=== PATIENT | male | born 1965 | race Caucasian/White ===

== ENCOUNTER 2024-05-09 10:52 | Inpatient (IN) | payer OTHER ==
[~2024-05-09] VITALS: Ht 177.8 cm; Wt 99.0 kg
[~2024-05-09 10:52] MED LIST: AMOCLA875; SULTRIDS
[2024-05-09] MEDS ORDERED: Ondansetron HCl 2 MG / ML 2ML Vial IV ONE (11:10)
[2024-05-09 11:37] LABS: BASOPHILS ABSOLUTE AUTO 0.04 K/mm3 (0.00-0.23); BASOPHILS PERCENT AUTO 1 % (0-2); EOSINOPHILS ABSOLUTE AUTO 0.01 K/mm3 (0.00-0.68); EOSINOPHILS PERCENT AUTO 0 % (0-6); Hematocrit 39.6 % (37.0-53.0); Hemoglobin 12.7 g/dL (13.5-17.5); IMMATURE GRAN ABSOLUTE AUTO 0.04 K/mm3 (0.00-0.10); IMMATURE GRAN PERCENT AUTO 1 % (0-1); LYMPHOCYTES ABSOLUTE AUTO 0.97 K/mm3 (0.84-5.20); LYMPHOCYTES PERCENT AUTO 11 % (21-46); MONOCYTES ABSOLUTE AUTO 0.67 K/mm3 (0.16-1.47); MONOCYTES PERCENT AUTO 8 % (4-13); Mean Corpuscular HGB Conc 32.1 g/dL (31.5-36.5); Mean Corpuscular Volume 87 fL (80-100); Mean Platelet Volume 8.9 fL (9.1-12.4); NEUTROPHILS ABSOLUTE AUTO 6.97 K/mm3 (1.96-9.15); NEUTROPHILS PERCENT AUTO 80 % (41-73); Platelet Count 410 K/mm3 (150-400); RDW Coefficient Variation 13.5 % (11.7-14.2); RDW Standard Deviation 43.6 fL (35.1-46.3); Red Blood Cell Count 4.54 M/mm3 (4.30-5.90)
[2024-05-09 11:54] LABS: Albumin, Blood 3.1 g/dL (3.4-5.0); Albumin/Globulin Ratio 0.7 (0.8-1.8); Bilirubin, Total 0.5 mg/dL (0.1-1.0); Bun/Creatinine Ratio 15.6 (12.0-20.0); Calcium, Blood 8.9 mg/dL (8.5-10.1); Creatinine, Blood 0.77 mg/dL (0.60-1.20); Globulin, Blood 4.5 g/dL (2.2-4.0); Potassium, Blood 3.9 mmol/L (3.5-5.5); Total Protein, Blood 7.6 g/dL (6.4-8.2)
[2024-05-09 12:26] LABS: Source, Urine Clean Catch
[2024-05-09 12:33] LABS: Appearance, Urine Clear (Clear); Bilirubin, Urine Neg (Neg); Blood, Urine Neg (Neg); Color, Urine Yellow (P-Yellow); Glucose Qualitative, Urine Neg (Neg); Ketones, Urine 4+ (Neg); Leukocyte Esterase, Urine 1+ (Neg); Nitrite, Urine Neg (Neg); Protein, Urine 2+ (Neg); Urobilinogen, Urine NORM (Normal)
[2024-05-09 12:40] LABS: Bacteria Many /hpf; Mucus Light (0-Heavy); Red Blood Cells, Urine 0-2 /hpf (0-2); Squamous Epithelial Cells Few /hpf (Few)
[2024-05-09] MEDS ORDERED: Ketorolac Tromethamine 15mg Vial IV ONE (14:10)
[2024-05-09] MEDS ORDERED: CefTRIAXone Sodium 1,000 MG in NS 100 ML IV ONE (14:30)
[2024-05-09] MEDS ORDERED: NS 1,000 ML IV SCH ×2 (14:35→17:00)
[2024-05-09] MEDS ORDERED: Ondansetron HCl 2 MG / ML 2ML Vial IV PRN (15:35)
[2024-05-09] MEDS ORDERED: FLU VACC TS2024-25(6MOS UP)/PF 45 MCG/0.5 ML SYRINGE IM ONE (15:35)
--- NOTE | 2024-05-09 16:32 | NUR ---
RECEIVED REPORT FORM JUVENAL OF ED.
[2024-05-09 17:03] VITALS: BP 150/88
[2024-05-09] MEDS ORDERED: Simethicone 80 MG Chew PO PRN (18:05)
[2024-05-09] MEDS ORDERED: FentaNYL Citrate 50 MCG/ML 2 ML Injection IV PRN (18:10)
--- NOTE | 2024-05-09 18:41 | NUR ---
SHIFT SUMMARY PT AOX4, COOPERATIVE, ABLE TO MAKE NEEDS KNOWN. PT IS AMBULATORY IN ROOM. MAIN COMPLAINT OF ABD GAS PAIN, MEDICATE PER EMAR. PT CLEAR LIQUID DIET CURRENTLY, RUNNING NS 75ML/HR. AWAITING BED AT [facility] FOR TRANSFER. BED IN LOWEST POSITION, CALL LIGHT WITHIN REACH.
[2024-05-09 20:00] VITALS: BP 142/97
[2024-05-10 04:06] VITALS: BP 152/87
--- NOTE | 2024-05-10 05:27 | NUR ---
SHIFT SUMMARY PT ALERT AND ORIENTED TIMES 4. PT ADMITTED FOR COLONIC MASS. PT IS TO TRANSFER TO [facility] WHEN BED IS AVAILABLE, FOR FURTHER TREATMENT. PT IS RECEPTIVE TO CARE. PT APPEARED TO SLEEP ON AND OFF THROUGH THE NIGHT. PT TOOK 25MCG OF FENT FOR PAIN. PT ABLE TO MAKE NEEDS KNOWN TO STAFF. PT RECEPTIVE TO CARE. CALL LIGHT WITHIN REACH, RAILS TIMES 2, BED IN LOW POSITION.
[2024-05-10 08:22] VITALS: BP 142/88
[2024-05-10] MEDS ORDERED: Heparin Sodium 5000 Units/ML 1ML MDV SC SCH (09:00)
--- NOTE | 2024-05-10 14:24 | NUR ---
NEAL CALLED FROM [facility] FOR UPDATE ON PT. INFORMED MD ASSESSED PT AND PT IS NOW NPO WITH EXCEPTION OF SIPS WATER AND ICE CHIPS. INFORMED ABOUT PAIN MANAGMENT, GAS PAIN, AMBULATORY, AND HYDRONEPHROSIS. WILL CALL WITH ANY NEW UPDATES.
[2024-05-10] MEDS ORDERED: CefTRIAXone Sodium 1,000 MG in NS 100 ML IV SCH (15:00)
[2024-05-10 16:05] VITALS: BP 147/84
--- NOTE | 2024-05-10 16:39 | NUR ---
SHIFT SUMMARY PT AOX4, COOPERATIVE, ABLE TO MAKE NEEDS KNOWN. PT IS IND IN ROOM, RUNNING NS AT 75/HR. PT IS NPO EXCEPT CAN HAVE SIPS WATER AND ICE CHIPS, PT UNDERSTANDS AND IS WILLING. ONLY COMPLAINS OF GAS PAIN IN ABDOMEN, MEDICATE PER EMAR. AWAITING BED AT [facility]. BED IN LOWEST POSITION, CALL LIGHT WITHIN REACH.
[2024-05-10] MEDS ORDERED: NS 250 ML IV PRN (18:40)
[2024-05-10 20:18] VITALS: BP 165/100
[2024-05-11 03:48] VITALS: BP 153/86
--- NOTE | 2024-05-11 05:02 | NUR ---
SHIFT SUMMARY PT ALERT AND ORIENTED TIMES 4. PT ADMITTED FOR COLONIC MASS. PT IS TO TRANSFER TO [facility] WHEN BED IS AVAILABLE, FOR FURTHER TREATMENT. PT IS RECEPTIVE TO CARE. PT APPEARED TO SLEEP ON AND OFF THROUGH THE NIGHT. PT TOOK 25MCG OF FENT FOR PAIN. PT ABLE TO MAKE NEEDS KNOWN TO STAFF. PT RECEPTIVE TO CARE. CALL LIGHT WITHIN REACH, RAILS TIMES 2, BED IN LOW POSITION.
[2024-05-11 07:17] VITALS: BP 146/95
[2024-05-11 15:39] VITALS: BP 151/84
[2024-05-11] MEDS ORDERED: NS 1,000 ML IV SCH (16:00)
[2024-05-11 16:51] VITALS: BP 151/84
[2024-05-11 17:46] VITALS: BP 151/84
--- NOTE | 2024-05-11 18:22 | NUR ---
SHIFT SUMMARY PT A&OX4. PT ADMITTED DUE TO COLONIC MASS. PT NPO. PT SIPS WATER AND EATS ICE CHIPS. PT HAD SHOWER THIS AM. PT REPORTS ABD PAIN, PAIN MANAGED PER EMAR. PT REPORTED MINIMAL NAUSEA. PT HAS NS RUNNING AT 75ML/HR. INDEPENDENT IN ROOM. PT IS COBRA TRANSFER. GAVE REPORT TO [facility] NURSE EVELIO. TRANSFER CAME TO MANAGER ASSURANCE PT. PT LEFT WITH BELONGINGS. VSS. PT LEFT WITH IV'S.
== END 2024-05-11 18:16 | disposition short-term general hospital (02) | DRG 375 ==
LOC: ER 10:52 → MEDS 10:53
PROVIDERS: Student in an Organized Health Care Education/Training Program; ADMIT Internal Medicine
DX: D49.0 Neoplasm of unspecified behavior of digestive system (principal); K56.699 Other intestinal obstruction unspecified as to partial versus complete obstruction; N13.6 Pyonephrosis; D64.9 Anemia, unspecified; I10 Essential (primary) hypertension
CPT/HCPCS: 71046; 74177; 80053; 81001; 83690; 84484; 85025; 87086; 93005; 93010; 96365; 96375; 99285-25; A9270; G0378; J0696; J1644; J1885; J3010; J7030; J7050; Q9967

== ENCOUNTER 2024-05-22 12:29 | Inpatient (IN) | payer OTHER ==
[~2024-05-22] VITALS: Ht 177.8 cm; Wt 98.6 kg
[2024-05-22 13:05] LABS: BASOPHILS ABSOLUTE AUTO 0.07 K/mm3 (0.00-0.23); BASOPHILS PERCENT AUTO 1 % (0-2); EOSINOPHILS ABSOLUTE AUTO 0.25 K/mm3 (0.00-0.68); EOSINOPHILS PERCENT AUTO 3 % (0-6); Hematocrit 37.1 % (37.0-53.0); Hemoglobin 12.8 g/dL (13.5-17.5); IMMATURE GRAN ABSOLUTE AUTO 0.06 K/mm3 (0.00-0.10); IMMATURE GRAN PERCENT AUTO 1 % (0-1); LYMPHOCYTES ABSOLUTE AUTO 0.77 K/mm3 (0.84-5.20); LYMPHOCYTES PERCENT AUTO 8 % (21-46); MONOCYTES ABSOLUTE AUTO 1.05 K/mm3 (0.16-1.47); MONOCYTES PERCENT AUTO 11 % (4-13); Mean Corpuscular HGB 27.8 pg (26.0-34.0); Mean Corpuscular HGB Conc 34.5 g/dL (31.5-36.5); Mean Corpuscular Volume 81 fL (80-100); Mean Platelet Volume 8.5 fL (9.1-12.4); NEUTROPHILS ABSOLUTE AUTO 7.61 K/mm3 (1.96-9.15); NEUTROPHILS PERCENT AUTO 78 % (41-73); Platelet Count 641 K/mm3 (150-400); RDW Coefficient Variation 14.2 % (11.7-14.2); White Blood Cell Count 9.81 K/mm3 (4.00-11.30)
[2024-05-22 13:56] LABS: Albumin, Blood 3.3 g/dL (3.4-5.0); Albumin/Globulin Ratio 0.7 (0.8-1.8); Bilirubin, Total 0.5 mg/dL (0.1-1.0); Bun/Creatinine Ratio 14.6 (12.0-20.0); Calcium, Blood 9.9 mg/dL (8.5-10.1); Creatinine, Blood 1.71 mg/dL (0.60-1.20); Globulin, Blood 4.9 g/dL (2.2-4.0); Total Protein, Blood 8.2 g/dL (6.4-8.2)
[2024-05-22] MEDS ORDERED: TAMS.4ER PO (14:24)
[2024-05-22] MEDS ORDERED: Ondansetron HCl 2 MG / ML 2ML Vial IV PRN ×2 (14:25→18:10)
[2024-05-22] MEDS ORDERED: Potassium Chloride 20 MEQ/15 ML UDC PO ONE (14:30)
[2024-05-22] MEDS ORDERED: NS 1,000 ML IV SCH ×2 (15:35→18:30)
[2024-05-22] MEDS ORDERED: FLU VACC TS2024-25(6MOS UP)/PF 45 MCG/0.5 ML SYRINGE IM ONE (18:10)
[2024-05-22] MEDS ORDERED: FentaNYL Citrate 50 MCG/ML 2 ML Injection IV PRN (18:10)
[2024-05-22] MEDS ORDERED: NS 1,000 ML IV ONE (19:32)
[2024-05-22] MEDS ORDERED: Metoclopramide HCl 5MG / ML 2ML Vial IV PRN (20:30)
[2024-05-23 00:04] LABS: Adenovirus F 40/41 Not Detected (NOT DETECT); Astrovirus Not Detected (NOT DETECT); Campylobacter Sp Not Detected (NOT DETECT); Cryptosporidium Not Detected (NOT DETECT); Cyclospora Cayetanensis Not Detected (NOT DETECT); E. Coli O157 Not Detected (NOT DETECT); Entamoeba Histolytica Not Detected (NOT DETECT); Enteroaggregative E. coli-EAEC Not Detected (NOT DETECT); Enteropathogenic E. coli-EPEC Detected (NOT DETECT); Enterotoxigenic E. coli-ETEC Not Detected (NOT DETECT); Giardia Lamblia Not Detected (NOT DETECT); Norovirus GI/GII Not Detected (NOT DETECT); Plesiomonas Shigelloides Not Detected (NOT DETECT); Rotavirus A Not Detected (NOT DETECT); Salmonella Sp Not Detected (NOT DETECT); Sapovirus Not Detected (NOT DETECT); Shiga Toxin-prod E. coli-STEC Not Detected (NOT DETECT); Shigella/Enteroin E. coli-EIEC Not Detected (NOT DETECT); Vibrio Cholerae Not Detected (NOT DETECT); Vibrio Sp Not Detected (NOT DETECT); Yersinia Enterocolitica Not Detected (NOT DETECT)
[2024-05-23 12:11] LABS: BASOPHILS ABSOLUTE AUTO 0.03 K/mm3 (0.00-0.23); BASOPHILS PERCENT AUTO 0 % (0-2); EOSINOPHILS ABSOLUTE AUTO 0.29 K/mm3 (0.00-0.68); EOSINOPHILS PERCENT AUTO 3 % (0-6); Hematocrit 33.6 % (37.0-53.0); Hemoglobin 11.2 g/dL (13.5-17.5); IMMATURE GRAN ABSOLUTE AUTO 0.04 K/mm3 (0.00-0.10); IMMATURE GRAN PERCENT AUTO 0 % (0-1); LYMPHOCYTES ABSOLUTE AUTO 0.61 K/mm3 (0.84-5.20); LYMPHOCYTES PERCENT AUTO 7 % (21-46); MONOCYTES ABSOLUTE AUTO 0.88 K/mm3 (0.16-1.47); MONOCYTES PERCENT AUTO 10 % (4-13); Mean Corpuscular HGB 28.3 pg (26.0-34.0); Mean Corpuscular HGB Conc 33.3 g/dL (31.5-36.5); Mean Corpuscular Volume 85 fL (80-100); Mean Platelet Volume 8.8 fL (9.1-12.4); NEUTROPHILS ABSOLUTE AUTO 7.04 K/mm3 (1.96-9.15); NEUTROPHILS PERCENT AUTO 79 % (41-73); Platelet Count 636 K/mm3 (150-400); RDW Coefficient Variation 14.1 % (11.7-14.2); RDW Standard Deviation 43.8 fL (35.1-46.3); Red Blood Cell Count 3.96 M/mm3 (4.30-5.90); White Blood Cell Count 8.89 K/mm3 (4.00-11.30)
[2024-05-23 12:22] LABS: Albumin, Blood 2.8 g/dL (3.4-5.0); Albumin/Globulin Ratio 0.6 (0.8-1.8); Bilirubin, Total 0.3 mg/dL (0.1-1.0); Bun/Creatinine Ratio 21.5 (12.0-20.0); Calcium, Blood 8.3 mg/dL (8.5-10.1); Creatinine, Blood 1.3 mg/dL (0.60-1.20); Globulin, Blood 4.4 g/dL (2.2-4.0); Potassium, Blood 3.2 mmol/L (3.5-5.5); Total Protein, Blood 7.2 g/dL (6.4-8.2)
--- NOTE | 2024-05-23 13:18 | NUR ---
RECEIVED REPORT FROM REINA BARBOZA OF ED.
[2024-05-23 14:32] VITALS: BP 120/60
[2024-05-23 16:18] VITALS: BP 110/67
--- NOTE | 2024-05-23 16:59 | NUR ---
SHIFT SUMMARY PT AOX4, COOPERATIVE, ABLE TO MAKE NEEDS KNOWN. PT ADMITTED FOR SMALL BOWEL OBSTRUCTION. ADMITTED 2 WKS AGO FOR COLONIC MASS, WAITING FOR BED AT [facility], TRANSFERRED UP. HAD SURGERY FOR MASS REMOVAL, COLOSTOMY PLACED. POUCH FILLING WITH BROWNISH GREEN LIQUID. CONSULT PLACED TO SURGERY. PT IND IN ROOM, ON FULL LIQUID DIET, RUNNING TELE. NO COMPLAINTS OF PAIN CURRENLTY. BED IN LOWEST POSITION, CALL LIGHT WITHIN REACH.
[2024-05-23] MEDS ORDERED: NS 250 ML IV PRN (17:10)
[2024-05-23 19:59] VITALS: BP 112/67
[2024-05-24 03:21] VITALS: BP 104/68
--- NOTE | 2024-05-24 03:42 | NUR ---
SHIFT SUMMARY PT ALERT ORIENTED X 4 ABLE TO VERBALIZE NEEDS GETS UP AD GEOVANY IN THE ROOM. HE HAS A COLOSTOMY BAG THAT HE CHANGED WITH MINIMAL ASSIST. ITS DRAINING GREEN COLORED STOOL. NO C/O N/V. ABD SOFT NONDISTENDED. NO C/O PAIN. REMAINS ON TELEMETRY AT NSR AT A RATE OF 62 WITH BBB. VSS. HE USES HIS CPAP AT NIGHT AND RA DURING THE DAY. CONTINUES ON A CONTINUOUS PULSE OX. CURRENTLY ON A FULL LIQUID DIET. HE TOLERATED DINNER LAST NIGHT. RESTING IN BED AT THIS TIME
[2024-05-24 05:35] LABS: BASOPHILS ABSOLUTE AUTO 0.02 K/mm3 (0.00-0.23); BASOPHILS PERCENT AUTO 0 % (0-2); EOSINOPHILS ABSOLUTE AUTO 0.29 K/mm3 (0.00-0.68); EOSINOPHILS PERCENT AUTO 3 % (0-6); Hematocrit 33.1 % (37.0-53.0); Hemoglobin 10.9 g/dL (13.5-17.5); IMMATURE GRAN ABSOLUTE AUTO 0.05 K/mm3 (0.00-0.10); IMMATURE GRAN PERCENT AUTO 1 % (0-1); LYMPHOCYTES ABSOLUTE AUTO 0.97 K/mm3 (0.84-5.20); LYMPHOCYTES PERCENT AUTO 11 % (21-46); MONOCYTES ABSOLUTE AUTO 0.94 K/mm3 (0.16-1.47); MONOCYTES PERCENT AUTO 11 % (4-13); Mean Corpuscular HGB 28.2 pg (26.0-34.0); Mean Corpuscular HGB Conc 32.9 g/dL (31.5-36.5); Mean Corpuscular Volume 86 fL (80-100); Mean Platelet Volume 8.7 fL (9.1-12.4); NEUTROPHILS ABSOLUTE AUTO 6.57 K/mm3 (1.96-9.15); NEUTROPHILS PERCENT AUTO 74 % (41-73); Platelet Count 607 K/mm3 (150-400); RDW Coefficient Variation 13.9 % (11.7-14.2); RDW Standard Deviation 43.8 fL (35.1-46.3); Red Blood Cell Count 3.86 M/mm3 (4.30-5.90); White Blood Cell Count 8.84 K/mm3 (4.00-11.30)
[2024-05-24 05:49] LABS: Albumin, Blood 2.6 g/dL (3.4-5.0); Albumin/Globulin Ratio 0.7 (0.8-1.8); Bilirubin, Total 0.3 mg/dL (0.1-1.0); Bun/Creatinine Ratio 21.8 (12.0-20.0); Calcium, Blood 8.4 mg/dL (8.5-10.1); Creatinine, Blood 1.01 mg/dL (0.60-1.20); Globulin, Blood 3.9 g/dL (2.2-4.0); Potassium, Blood 2.9 mmol/L (3.5-5.5); Total Protein, Blood 6.5 g/dL (6.4-8.2)
[2024-05-24] MEDS ORDERED: Potassium Chloride 20 MEQ TabCR PO ONE (07:35)
--- NOTE | 2024-05-24 07:35 | NUR ---
INFORMED MD OF LOW POTASSIUM AND SODIUM LABS, TELEPHONE ORDER PLACED POTASSIUM SUPPLEMENT AND REPEAT LABS AT NOON.
[2024-05-24 07:55] VITALS: BP 109/66
[2024-05-24] MEDS ORDERED: ONDA4ODT MM (10:15)
[2024-05-24 11:26] VITALS: BP 122/75
[2024-05-24 12:15] LABS: Magnesium, Blood 2.3 mg/dL (1.6-2.4); Potassium, Blood 3.3 mmol/L (3.5-5.5)
--- NOTE | 2024-05-24 13:03 | NUR ---
INFORMED MD ABOUT PT POTASSIUM LEVELS. THIS RN TO MEDICATE PER EMAR, AND INSTRUCT PT TO FOLLOW UP OUTPATIENT.
[2024-05-24] MEDS ORDERED: Potassium Chloride 10 Meq Tablet SA PO ONE (13:05)
--- NOTE | 2024-05-24 13:23 | NUR ---
DISCHARGE PT AOX4, COOPERATIVE, ABLE TO MAKE NEEDS KNOWN. THIS RN DC'D IV AND TELE. INFORMED MD ABOUT POTASSIUM LEVELS, MEDICATED PER EMAR, INSTRUCTED PT TO FOLLOW UP WITH OUTPT LABS. THIS RN WENT OVER DC PAPERWORK WITH PT AND FAMILY MEMBER. PT DECIDED TO WALK DOWN TO PT ENTRANCE TO GO HOME. NEW MEDS FAXIED TO [facility] SINCE [facility] NOT OPEN ON WEEKEND.
== END 2024-05-24 13:00 | disposition home or self-care (01) | DRG 389 ==
LOC: ER 12:29 → ERHOLD 17:38 → ER 17:38 → SURS 17:38 → MEDS 17:38
PROVIDERS: Family Medicine; Student in an Organized Health Care Education/Training Program; ADMIT Internal Medicine
DX: K91.30 Postprocedural intestinal obstruction, unspecified as to partial versus complete (principal); C18.7 Malignant neoplasm of sigmoid colon; N17.9 Acute kidney failure, unspecified; E87.1 Hypo-osmolality and hyponatremia; E87.6 Hypokalemia; E86.0 Dehydration; G47.33 Obstructive sleep apnea (adult) (pediatric); F17.220 Nicotine dependence, chewing tobacco, uncomplicated; Z93.3 Colostomy status; Z90.49 Acquired absence of other specified parts of digestive tract
CPT/HCPCS: 36415; 74177; 80053; 82947; 83735; 83880; 84132; 85025; 87507; 93005; 93010; 94660; 94762; 96361; 96374-59; 99285-25; A9270; J2405; J3010; J7030; Q9967

== ENCOUNTER 2024-06-26 06:22 | Day surgery (SDC) | payer OTHER ==
[~2024-06-26] VITALS: Ht 177.8 cm; Wt 97.7 kg
[~2024-06-26 06:22] MED LIST changes: +ONDA4ODT MM; +TAMS.4ER PO
[2024-06-26] MEDS ORDERED: Lidocaine HCl/Pf 1% 5 ML VIAL ONE ×2 (06:29→07:21)
[2024-06-26] MEDS ORDERED: Dexamethasone Sod Phos 10 MG/ML 1ML VIAL ONE (06:36)
[2024-06-26] MEDS ORDERED: propofoL 20 ML IV ONE (06:36)
[2024-06-26] MEDS ORDERED: Ondansetron HCl 2 MG / ML 2ML Vial ONE (06:36)
[2024-06-26] MEDS ORDERED: Midazolam HCl 1MG / ML 2ML Vial ONE (06:36)
[2024-06-26] MEDS ORDERED: FentaNYL Citrate 50 MCG/ML 2 ML Injection ONE (06:36)
[2024-06-26] MEDS ORDERED: CeFAZolin Sodium 2,000 MG VIAL ONE (06:39)
[2024-06-26] MEDS ORDERED: Lactated Ringer's 1,000 ML IV ONE ×2 (06:39→06:55)
[2024-06-26] MEDS ORDERED: Ketorolac Tromethamine 30mg Vial ONE (07:24)
[2024-06-26] MEDS ORDERED: Glycopyrrolate 0.2 MG/ML 5ML VIAL ONE (07:25)
[2024-06-26] MEDS ORDERED: Bupivacaine 0.5% HCl 5 MG/ML 30MLVIAL XX ONE (07:41)
--- NOTE | 2024-06-26 08:28 | NUR ---
06/26/24 0819 ISSA RENNER xray here to check mediport placement. WILL CALL TO NOTIFY WHEN PT ABLE TO DRINK ANYTHING [id number]
[2024-06-26 08:35] VITALS: BP 150/98
== END 2024-06-26 09:00 | disposition home or self-care (01) ==
LOC: ORSCSDS 06:22
PROVIDERS: Surgery
PROC: 0JH60WZ Insertion of Totally Implantable Vascular Access Device into Chest Subcutaneous Tissue and Fascia, Open Approach (ICD-10-PCS; principal; 2024-06-26 07:30)
DX: Z85.038 Personal history of other malignant neoplasm of large intestine (principal); C78.2 Secondary malignant neoplasm of pleura; Z90.49 Acquired absence of other specified parts of digestive tract; G47.33 Obstructive sleep apnea (adult) (pediatric); Z79.899 Other long term (current) drug therapy
CPT/HCPCS: 77001; C1788; J0690; J1100; J1642; J1885; J2003; J2250; J2405; J2704; J3010; J7120

== ENCOUNTER 2024-10-13 20:45 | Emergency (ER) | payer OTHER ==
[~2024-10-13] VITALS: Ht 177.8 cm; Wt 101.2 kg
[2024-10-13 21:06] VITALS: BP 160/103
== END 2024-10-13 22:01 | disposition home or self-care (01) ==
LOC: ER 20:45
DX: Z45.1 Encounter for adjustment and management of infusion pump (principal)
CPT/HCPCS: 99282